=== PATIENT | male | born 1985 | race Caucasian/White ===

== ENCOUNTER 2016-08-12 17:18 | Emergency (ER) | payer SELFPAY ==
[~2016-08-12] VITALS: Ht 172.7 cm; Wt 72.6 kg
[2016-08-12 17:36] VITALS: BP 141/87
--- NOTE | 2016-08-12 19:33 | NUR ---
Patient ambulated to bed 08.
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
--- NOTE | 2016-08-12 20:07 | NUR ---
Dr. Yates evaluating patient at bedside.
[2016-08-12 20:14] VITALS: BP 141/87
--- NOTE | 2016-08-12 20:14 | NUR ---
Patient discharged with v/s stable. Written and verbal after care instructions given and explained BY . Patient verbalized understanding. Ambulatory with steady gait. All questions addressed prior to discharge. Advised to follow up with PMD. D/C BY
== END 2016-08-12 20:23 | disposition home or self-care (01) ==
LOC: MED 17:23
DX: Z00.01 Encounter for general adult medical examination with abnormal findings (principal); N48.89 Other specified disorders of penis; R03.0 Elevated blood-pressure reading, without diagnosis of hypertension